=== PATIENT | female | born 1995 | race Caucasian/White ===

== ENCOUNTER 2018-05-14 10:00 | Outpatient (CLI) | payer OTHER ==
[2018-05-14 10:55] LABS: BASOPHILS % (AUTO) 0.9 % (0-1); EOSINOPHILS # (AUTO) 0.2 X10'3 (0-0.9); EOSINOPHILS % (AUTO) 4.3 % (0-6); HEMATOCRIT 38.6 % (35.0-45.0); HEMOGLOBIN 12.9 g/dl (12.0-16.0); LYMPHOCYTES # (AUTO) 1.3 X10'3 (1.1-4.8); LYMPHOCYTES % (AUTO) 33.3 % (21-51); MEAN CORPUSCULAR HEMOGLOBIN 30.1 PG (27.0-31.0); MEAN CORPUSCULAR HGB CONC 33.3 % (33.0-36.5); MEAN CORPUSCULAR VOLUME 90.5 FL (78-98); MEAN PLATELET VOLUME 9.1 FL (7.4-10.4); MONOCYTES # (AUTO) 0.3 X10'3 (0-0.9); MONOCYTES % (AUTO) 8.7 % (2-12); NEUTROPHILS # (AUTO) 2.1 X10'3 (1.8-7.7); NEUTROPHILS % (AUTO) 52.8 % (42-75); PLATELET COUNT 214 X10'3 (140-440); RED BLOOD COUNT 4.27 X10'6 (4.20-5.60); RED CELL DISTRIBUTION WIDTH 13.4 % (11.5-14.5)
[2018-05-14 11:48] LABS: CLARITY,URINE CLEAR (Clear); COLOR,URINE YELLOW (Yellow); GLUCOSE, URINE NEGATIVE (Neg); KETONES,URINE NEGATIVE (Neg); LEUKOCYTE ESTERASE ,URINE NEGATIVE (Neg); NITRITES, URINE NEGATIVE (Neg); OCCULT BLOOD,URINE NEGATIVE (Neg); PH,URINE 6.5 (4.8-8.0); PROTEIN,URINE NEGATIVE (Neg); UROBILINOGEN,URINE 0.2 E.U/dL (0.2-1.0)
[2018-05-14 11:51] LABS: UA COLLECTION TYPE NON-SPECIFIED
[2018-05-14 13:02] LABS: ALANINE AMINOTRANSFERASE 17 U/L (12-78); ALBUMIN 4.2 G/DL (3.4-5.0); ALBUMIN/GLOBULIN RATIO 1.6 (1.1-1.5); ALKALINE PHOSPHATASE 43 IU/L (46-116); ANION GAP 13 (8-16); ASPARTATE AMINO TRANSFERASE 13 U/L (10-37); BILIRUBIN,TOTAL 0.7 MG/DL (0.1-1.0); BLOOD UREA NITROGEN 9 MG/DL (7-18); CALCIUM 9.2 MG/DL (8.5-10.1); CHLORIDE 104 MMOL/L (99-107); CHOL/HDL RATIO 2.1 (0.00-4.99); CHOLESTEROL 115 MG/DL (0-200); CREATININE 0.82 MG/DL (0.40-0.90); FERRITIN 18 NG/ML (8-252); GLUCOSE 84 MG/DL (70-104); HDL CHOLESTEROL 56 MG/DL (35-60); LDL CHOLESTEROL 54 MG/DL (50-100); POTASSIUM 3.8 MMOL/L (3.5-5.1); SODIUM 141 MMOL/L (135-145); TOTAL CARBON DIOXIDE 23.6 MMOL/L (24-32); TOTAL PROTEIN 6.9 G/DL (6.4-8.2); TRIGLYCERIDES 33 MG/DL (20-135); eGFR 86 ML/MIN
[2018-05-14 13:42] LABS: % IRON SATURATION 32 % (11-46); IRON 91 UG/DL (49-151); TOTAL IRON BINDING CAPACITY 284 UG/DL (259-388)
[2018-05-15 05:20] LABS: THYROXINE (T4) 5.4 ug/dL (4.5-12.0)
== END 2018-05-14 23:59 | disposition home or self-care (01) ==
LOC: LAB 10:00
PROVIDERS: ATTEND Family Medicine
DX: Z78.9 Other specified health status (principal)
CPT/HCPCS: 36415; 80053; 80061; 81003; 82607; 82728; 82746; 83540; 83550; 84436; 84443; 85025

== ENCOUNTER 2020-03-27 15:52 | Outpatient (CLI) | payer OTHER ==
[2020-03-28] MEDS ORDERED: ALBU8HFA PO (13:09)
[2020-03-28] MEDS ORDERED: PRED20TA PO (13:22)
== END 2020-03-27 23:59 | disposition home or self-care (01) ==
LOC: ER 15:52 → LAB 23:59
PROVIDERS: ATTEND Internal Medicine Infectious Disease
DX: Z20.828 Contact with and (suspected) exposure to other viral communicable diseases (principal)
CPT/HCPCS: 87635; C9803

== ENCOUNTER 2020-03-28 11:55 | Emergency (ER) | payer OTHER ==
[~2020-03-28] VITALS: Ht 167.6 cm; Wt 52.3 kg
[2020-03-28] MEDS ORDERED: ipratropium/albuterol 3ml nebule NEB ONE (12:25)
[2020-03-28 13:04] LABS: D-DIMER < 0.19 MG/L FEU (0-0.50)
[2020-03-28] MEDS ORDERED: ALBU8HFA PO (13:09)
[2020-03-28] MEDS ORDERED: PRED20TA PO (13:22)
[2020-03-28 13:32] VITALS: BP 121/97
== END 2020-03-28 13:27 | disposition home or self-care (01) ==
LOC: EEVIPCON 11:56 → ER 11:56
DX: R06.02 Shortness of breath (principal); R07.89 Other chest pain; Z20.828 Contact with and (suspected) exposure to other viral communicable diseases; Z79.899 Other long term (current) drug therapy
CPT/HCPCS: 36415; 71045; 85379; 94640; 94760; 99284